=== PATIENT | male | born 1980 | race Hispanic/Latino ===

== ENCOUNTER 2018-03-25 09:58 | Emergency (ER) | payer MEDICAID, OTHER ==
[2018-03-25 10:27] VITALS: BP 125/85; PULSE 71; RESP 16; TEMP 97.3; O2SAT 97; BMI 29.7
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
== END 2018-03-25 11:14 | disposition home or self-care (01) ==
LOC: H.ER 09:58
DX: S01.552A Open bite of oral cavity, initial encounter (principal); Z86.59 Personal history of other mental and behavioral disorders

== ENCOUNTER 2018-04-15 08:27 | Emergency (ER) | payer OTHER ==
[2018-04-15 08:27] VITALS: BMI 29.7
[2018-04-15 08:46] VITALS: TEMP 98.2
--- NOTE | 2018-04-15 09:46 | ED PDOC ---
HPI: Psych/Substance Abuse Time Seen by Provider: 04/15/18 09:05 Chief Complaint (Nursing): Substance Abuse Chief Complaint (Provider): Substance Abuse History Per: Patient History/Exam Limitations: no limitations Onset/Duration Of Symptoms: Days (04/07, 04/11) Current Symptoms Are (Timing): Better Additional Complaint(s): 38 year old male presents to the ED for evaluation after recently having suicidal ideation. He states he ingested 10-12 tabs of lithium 600mg together with 10-12 tabs Xanax 0.5mg as well as alcohol on 04/07 and again on 04/11 due to suicidal ideation. He has not ingested anything else since then and currently denies suicidal ideation. Patient is here today because he feels nausea and tremulous. Denies chest pain, vomiting, and head aches. PMD: Nic Noel Past Medical History Reviewed: Historical Data, Nursing Documentation, Vital Signs Vital Signs: Last Vital Signs Temp 98.2 F 04/15/18 08:45 Pulse 76 04/15/18 08:45 Resp 19 04/15/18 08:45 BP 125/80 04/15/18 08:45 Pulse Ox 98 04/15/18 08:45 - Medical History PMH: Bipolar Disorder, Depression Denies: Diabetes, Hepatitis, HIV, HTN, Chronic Kidney Disease, Seizures, Sexually Transmitted Disease - Surgical History Surgical History: No Surg Hx - Family History Family History: States: Unknown Family Hx - Social History Current smoker - smoking cessation education provided: Yes Alcohol: None Drugs: Other (lithium, xanax) - Immunization History Hx Tetanus Toxoid Vaccination: No Hx Influenza Vaccination: No Hx Pneumococcal Vaccination: No - Home Medications Home Medications: Ambulatory Orders Medication Instructions Recorded Red Oak Carbonate [[place] 600 mg PO Q12H #14 cap 12/16/14 Carbonate 300MG] Alprazolam [Xanax] 0.5 mg PO 04/15/18 - Allergies Allergies/Adverse Reactions: Allergies Allergy/AdvReac Type Severity Reaction Status Date / Time No Known Allergies Allergy Verified 03/25/18 10:35 Review of Systems ROS Statement: Except As Marked, All Systems Reviewed And Found Negative Psych: Positive for: Suicidal ideation (but currently denies) Physical Exam - Reviewed Nursing Documentation Reviewed: Yes Vital Signs Reviewed: Yes - Physical Exam Appears: Positive for: No Acute Distress Head Exam: Positive for: ATRAUMATIC, NORMOCEPHALIC Skin: Positive for: Normal Color, Warm, Dry Eye Exam: Positive for: Normal appearance, EOMI, PERRL Neck: Positive for: Normal, Painless ROM, Supple Cardiovascular/Chest: Positive for: Regular Rate, Rhythm. Negative for: Murmur Respiratory: Positive for: Normal Breath Sounds. Negative for: Accessory Muscle Use, Respiratory Distress Gastrointestinal/Abdominal: Positive for: Normal Exam, Soft. Negative for: Tenderness Extremity: Positive for: Normal ROM. Negative for: Pedal Edema, Calf Tenderness , Deformity Neurologic/Psych: Positive for: Alert, Oriented. Negative for: Motor/Sensory Deficits - Laboratory Results Result Diagrams: 04/15/18 09:45 04/15/18 09:45 - ECG O2 Sat by Pulse Oximetry: 98 (RA) Pulse Ox Interpretation: Normal Medical Decision Making Medical Decision Making: Initial Impression: drug abuse, recent suicidal ideation Time: 09:36 Initial Plan: --EKG --Acetaminophen --Alcohol --CMP --Drug screen --Salicylate --Trop I --CBC with differential --PT/INR --Chest Portable XR --1:1 Observation Scribe Attestation: Documented by Kathleen Knight, acting as a scribe for Nav Julien MD. No medical indication for admission, Poison control consulted Pt denies SI/HI, has outpt follow up arranged. Provider Scribe Attestation: All medical entries made by the Scribe were at my direction and personally dictated by me. I have reviewed the chart and agree that the record accurately reflects my personal performance of the history, physical exam, medical decision making, and the department course for this patient. I have also personally directed, reviewed, and agree with the discharge instructions and disposition. Disposition - Clinical Impression Clinical Impression: Bipolar disorder - Patient ED Disposition Is Patient to be Admitted: No - Disposition Disposition: Routine/Home Disposition Time: 12:04 Condition: FAIR Additional Instructions: MAINTAIN APPOINTMENT ON 04/18/18 AT [facility] MAINTAIN APPOINTMENT WITH DR. MYRON COLE ON Tuesday04/19/18. Instructions: Bipolar Disorder Forms: [employer] (Greenlandic)
[2018-04-15 09:52] LABS: BASO # 0.1 K/uL (0.0-0.2); BASO % 1.2 % (0.0-2.0); EOS # 0.3 K/uL (0.0-0.7); EOS % 3.2 % (0.0-4.0); HEMOGLOBIN 15.2 g/dL (12.0-18.0); LYMPH # 1.7 K/uL (1.0-4.3); LYMPH % 19.4 % (20.0-40.0); MEAN CELL VOLUME 92.3 fl (80.0-94.0); MEAN CORPUSCULAR HEMOGLOBIN 31.8 pg (27.0-31.0); MEAN CORPUSCULAR HGB CONC 34.5 g/dL (33.0-37.0); MEAN PLATELET VOLUME 8.9 fl (7.2-11.7); MONO # 0.7 K/uL (0.0-0.8); MONO % 7.5 % (0.0-10.0); NEUT # 6.1 K/uL (1.8-7.0); NEUT % 68.7 % (50.0-75.0); RBC 4.77 Mil/uL (4.40-5.90); WHITE BLOOD COUNT 8.9 K/uL (4.8-10.8)
[2018-04-15 10:06] LABS: ALB/GLOB RATIO 1.4 (1.0-2.1); ALBUMIN 4.1 g/dL (3.5-5.0); ALT/SGPT 51 U/L (21-72); AST/SGOT 26 U/L (17-59); BLOOD UREA NITROGEN 13 mg/dl (9-20); CALCIUM 9.2 mg/dL (8.4-10.2); GFR AFRICAN-AMERICAN > 60; GFR NON-AFRICAN AMERICAN > 60
--- NOTE | 2018-04-15 10:07 | RAD ---
HISTORY: cough COMPARISON: Chest radiograph dated 12/09/2014. FINDINGS: LUNGS: No active pulmonary disease. PLEURA: No significant pleural effusion identified, no pneumothorax apparent. CARDIOVASCULAR: Normal. OSSEOUS STRUCTURES: No significant abnormalities. VISUALIZED UPPER ABDOMEN: Normal. OTHER FINDINGS: None. IMPRESSION: No active disease.
[2018-04-15 10:18] LABS: ACETAMINOPHEN < 10.0 ug/ml (10.0-30.0); SALICYLATE < 1.0 mg/dl
[2018-04-15 10:40] LABS: BARBITURATES, UR NEGATIVE (NEGATIVE); BENZODIAZEPINES, UR NEGATIVE (NEGATIVE); OPIATES, UR NEGATIVE (NEGATIVE); PHENCYCLIDINE, UR NEGATIVE (NEGATIVE)
[2018-04-15 12:23] VITALS: BP 115/80; PULSE 82; RESP 16; O2SAT 100
--- NOTE | 2018-04-17 11:32 | CARD ---
APPROVED REPORT EKG Measurement Heart [id number] <Conclusion> Normal sinus rhythm Normal ECG
== END 2018-04-15 12:50 | disposition home or self-care (01) ==
LOC: H.ER 08:27
DX: F31.9 Bipolar disorder, unspecified (principal); R45.851 Suicidal ideations; F17.200 Nicotine dependence, unspecified, uncomplicated